=== PATIENT | male | born 2000 | race African-American/Black ===

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

== ENCOUNTER 2019-06-18 13:25 | Emergency (ER) | payer MEDICAID ==
[~2019-06-18] VITALS: Ht 160 cm; Wt 61.0 kg
[2019-06-18] MEDS ORDERED: ACETAMINOPHEN 500MG TABLET PO ONE (14:30)
[2019-06-18] MEDS ORDERED: IBUPROFEN 800MG TABLET PO ONE (14:30)
[2019-06-18] MEDS ORDERED: LIDOCAINE HCL 1% 20ML VIAL (Pyxis) INJ INFIL ONE ×2 (16:30→17:15)
[2019-06-18] MEDS ORDERED: CEFTRIAXONE SODIUM 250 MG/VIAL IM ONE (17:15)
[2019-06-18] MEDS ORDERED: AZITHROMYCIN 500 MG TABLET PO ONE (17:15)
[2019-06-18 17:21] LABS: CLARITY URINE CLOUDY (CLEAR); COLOR URINE YELLOW (YELLOW); KETONES URINE TRACE (NEGATIVE); LEUKOCYTE ESTERASE URINE 3+ (NEGATIVE); NITRITE URINE NEGATIVE (NEGATIVE); OCCULT BLOOD URINE NEGATIVE (NEGATIVE); PH URINE 7.5 (4.5-8.0); PROTEIN URINE NEGATIVE (NEGATIVE); SPECIFIC GRAVITY URINE 1.026 (1.005-1.030)
[2019-06-18 17:28] VITALS: BP 122/71
[2019-06-21 04:09] LABS: CHLAMYDIA TRACHOMATIS NAA Positive (Negative); NEISSERIA GONORRHOEAE NAA Positive (Negative)
== END 2019-06-18 17:35 | disposition home or self-care (01) ==
LOC: ER 13:25
DX: S63.293A Dislocation of distal interphalangeal joint of left middle finger, initial encounter (principal); N34.1 Nonspecific urethritis; F12.10 Cannabis abuse, uncomplicated; Y04.8XXA Assault by other bodily force, initial encounter; Y93.89 Activity, other specified; Y92.89 Other specified places as the place of occurrence of the external cause; Y99.8 Other external cause status
CPT/HCPCS: 73140; 81003; 87086; 87491; 87591; 96372; 99284; J0696; J3490; Z7610

== ENCOUNTER 2019-09-06 12:20 | Emergency (ER) | payer MEDICAID ==
[~2019-09-06] VITALS: Ht 165.1 cm; Wt 65.0 kg
[2019-09-06] MEDS ORDERED: TETANUS, DIPHTHERIA, PERTUSSIS VAC/PF 0.5ML (>7YR OLD) IM ONE (13:15)
[2019-09-06 14:00] VITALS: BP 136/88
[2019-09-06] MEDS ORDERED: BACITRACIN ZINC OINT UDPKT TOP ONE (14:00)
[2019-09-06] MEDS ORDERED: ACETAMINOPHEN 325MG TABLET PO ONE (14:00)
== END 2019-09-06 14:00 | disposition home or self-care (01) ==
LOC: ER 12:25
DX: S41.152A Open bite of left upper arm, initial encounter (principal); W54.0XXA Bitten by dog, initial encounter; Y93.9 Activity, unspecified; Y92.9 Unspecified place or not applicable
CPT/HCPCS: 90471; 90715; 99283